=== PATIENT | female | born 2000 | race Caucasian/White ===

== ENCOUNTER 2021-02-12 14:17 | Emergency (ER) | payer OTHER ==
[2021-02-12 14:32] VITALS: BP 113/72; PULSE 61; TEMP 99.2; BMI 34.2
[2021-02-12] MEDS ORDERED: ACETAMINOPHEN 325 MG TABLET (FP) PO ONE (15:05)
[2021-02-12 15:08] LABS: BASO % 0.6 % (0-2.0); EOS % 2.4 % (0-4.5); HEMATOCRIT 40.5 % (32.4-45.2); HEMOGLOBIN 13.9 GM/dl (10.7-15.3); LYMPH % 24.6 % (8-40); MCH 31.4 pg (25.7-33.7); MCHC 34.3 g/dl (32.0-36.0); MEAN CELL VOLUME 91.6 fl (80-96); MEAN PLT VOLUME 8.2 fl (7.5-11.1); MONO % 5.5 % (3.8-10.2); NEUT % 66.9 % (42.8-82.8); PLATELET COUNT 221 10^3/uL (134-434); RBC 4.42 M/mm3 (3.60-5.2); RDW 12.3 % (11.6-15.6); WHITE BLOOD COUNT 5.1 K/mm3 (4.0-10.8)
[2021-02-12] MEDS ORDERED: ACETAMINOPHEN 325 MG TABLET (FP) ONE (15:09)
[2021-02-12 15:15] LABS: ALBUMIN 4.2 g/dl (3.4-5.0); BILIRUBIN,TOTAL 0.7 mg/dl (0.2-1); CREATININE 0.6 mg/dl (0.55-1.3); TOT PROT 7.5 g/dl (6.4-8.2)
== END 2021-02-12 15:47 | disposition home or self-care (01) ==
LOC: FER 14:17
DX: R42 Dizziness and giddiness (principal); A09 Infectious gastroenteritis and colitis, unspecified
CPT/HCPCS: 36415; 80053; 84703; 85025; 93005; 99284-25